=== PATIENT | male | born 1980 | race Caucasian/White ===

== ENCOUNTER 2019-02-14 07:31 | Emergency (ER) | payer MEDICAID, OTHER, SELFPAY ==
[~2019-02-14] VITALS: Ht 177.8 cm; Wt 124.0 kg
[2019-02-14 07:34] VITALS: BP 122/82
--- NOTE | 2019-02-14 07:50 | NUR ---
Pt ambulates with steady gait and balance to room from triage.
--- NOTE | 2019-02-14 07:55 | NUR ---
Pt states, "I had a hydroceil ectomy and I went and got up this morning and the stitches tore apart, and fluid came out." Pt resting on gurney. Family at bedside. ED PA at bedside. Bedside rail up for safety measures. Call light within reach. NADN.
[2019-02-14] MEDS ORDERED: ONDANSETRON ODT 4 MG PO ONE (08:00)
[2019-02-14] MEDS ORDERED: HYDROmorphone 1 MG/ML, 1ML INJ IM ONE (08:00)
[2019-02-14] MEDS ORDERED: ONDANSETRON ODT 4 MG ONE (08:10)
[2019-02-14] MEDS ORDERED: HYDROmorphone 2 MG/ML, 1ML ONE (08:11)
[2019-02-14] MEDS ORDERED: LIDOCAINE-MPF 1%, 5ML INFIL ONE (08:30)
[2019-02-14] MEDS ORDERED: LIDOCAINE-MPF 1%, 5ML ONE (08:45)
--- NOTE | 2019-02-14 09:31 | NUR ---
Patient given discharge instructions and they have confirmed that they understand the instructions. Patient ambulatory with steady gait. Pt left with all personal belongings and d/c paperwork.
== END 2019-02-14 09:35 | disposition home or self-care (01) ==
LOC: ED 09:00
DX: S31.31XA Laceration without foreign body of scrotum and testes, initial encounter (principal); T81.31XA Disruption of external operation (surgical) wound, not elsewhere classified, initial encounter; X58.XXXA Exposure to other specified factors, initial encounter; Y93.89 Activity, other specified; Y92.89 Other specified places as the place of occurrence of the external cause; Y99.8 Other external cause status
CPT/HCPCS: 12042; 96372; 99284; J1170; Q0162